=== PATIENT | male | born 1960 | race Caucasian/White ===

== ENCOUNTER 2019-06-28 11:08 | Inpatient (IN) ==
--- NOTE | 2019-06-01 14:33 | Anesthesiology Consultation ---
Date of Service June 01, 2019 Assessment & Plan (1) Encounter for pre-operative examination: Chart Review Chart Review: Acceptable Risk for Surgery and Patient seen in Pre Admission Testing PCP Clearance 06/01/19 note= "Yes" patient medically cleared for surgery Left knee arthroscopy 05/15/18= GA with LM #5- no issues noted Teaching & Discussion Pre-Anesthesia Teaching/Discussion Notes: Instructed NPO after midnight before surgery,except medications with 15 cc of water. Medication instructions provided according to the PAT guidelines. History Surgery Operation Date: 06/28/19 13:05 Proposed Procedures p Left Total Knee Arthroplasty - Benjamin Kelsey MD Height/Weight Height: 6 ft 1 in Weight: 81.7 kg Allergies Allergy/AdvReac Type Severity Reaction Status Date / Time morphine AdvReac Mild Vomiting Verified 05/28/19 11:16 Medications Home Medications Medication Instructions Recorded Confirmed Last Taken acetaminophen [Tylenol Extra 500 mg PO QAM 05/05/18 05/28/19 05/15/18 Strength] allopurinol 300 mg PO QAM 05/05/18 05/28/19 05/14/18 09:00 biotin 1 mg PO BID 05/05/18 05/28/19 05/14/18 09:00 celecoxib [Celebrex] 200 mg PO QAM 05/05/18 05/28/19 05/12/18 omeprazole 40 mg PO QAM 05/05/18 05/28/19 05/14/18 09:00 Past Medical History Medical History (Updated 06/01/19 @ 14:50 by Kavya Chamberlain PA-C) Chronic back pain Degenerative disc disease DVT (deep venous thrombosis) DVT s/p back surgery and left knee scope- on AC x six months after each event- no recent AC- no issues. Surgeon is aware of history GERD (gastroesophageal reflux disease) Well controlled and stable Gout Well controlled with meds Spinal stenosis Exercise / Class Metabolic Activity II 4-5 Yardwork/Stairs/Walk up hill (one flight of stairs- no chest pain or SOB ) Past Surgical History Surgical History (Updated 05/28/19 @ 11:19 by Bess Huizar RN) History of arthroscopic knee surgery LEFT History of back surgery lumbar disc repair History of colonoscopy History of esophagogastroduodenoscopy (EGD) History of lumbar fusion x2--hardware in place History of wisdom tooth extraction Past Anesthesia History No Hx of Anesthesia Complications and No Family Hx of Anesthesia Complications History of PONV No Hx of PONV and No Hx of Motion Sickness Social History Smoking Status: Former smoker (Light smoker x 4-5 years ) Do You Dip or Chew Tobacco: No Smoking End Date: 30-40 YR AGO Hx Alcohol Use: Yes Alcohol type: beer alcohol intake frequency: a few times a month Hx Substance Use: No substance use type: does not use Review of Systems Reflux well controlled with meds Hx of blood clot s/p surgeries (back and knee surgery)- has blood thinners prescribed after surgery. DVT to left LE x 2. AC x six months then d/c'ed. Surgeon aware Patient denies chest pain, shortness of breath, dyspnea on exertion, cough, wheezing, palpitations. No hx of seizures, stroke, SD, apnea/snoring. No blood transfusions No recent steroid use Physical Exam Vital Signs VITALS BP 153/95 (usually well controlled at appts) P 88 TEMP 98.2 SP02 98% RESP 18 Constitutional no acute distress ENMT Mouth: no TMJ clicking, no chipped teeth and no loose teeth Thyromental Distance: > or= 3.5 Finger Breadths (3.5) Mallampati Class: II No missing teeth Crowns to molars Neck neck extension not limited Respiratory normal respiratory effort; no respiratory distress Auscultation: lungs clear to auscultation bilaterally and + diminished lung sounds (throughout); no wheezes Cardiovascular Rate/Rhythm: regular rate and regular rhythm Heart Sounds: no murmur Vessels: no carotid bruit Musculoskeletal Spine: normal cervical ROM and no pain with cervical ROM Neurologic moves all extremities No LE edema Psychiatric Orientation: alert Testing Laboratory Results 06/01/19 14:52 06/01/19 14:52 PT 10.7 Seconds (9.0-12.0) 06/01/19 14:52 INR 1.0 (0.9-1.1) 06/01/19 14:52 Hemoglobin A1c 5.2 % (4.5-5.6) 06/01/19 14:52 Urine Color Yellow 06/01/19 14:52 Urine Appearance Clear (Clear) 06/01/19 14:52 Urine pH 5.0 (4.5-7.5) 06/01/19 14:52 Ur Specific [place] 1.022 (1.000-1.030) 06/01/19 14:52 Urine Protein Negative (Negative) 06/01/19 14:52 Urine Glucose (UA) Negative (Negative) 06/01/19 14:52 Urine Ketones Negative (Negative) 06/01/19 14:52 Urine Nitrite Negative (Negative) 06/01/19 14:52 Ur Leukocyte Esterase Negative (Negative) 06/01/19 14:52 Blood Type B Positive 06/01/19 14:52 Antibody Screen NEGATIVE 06/01/19 14:52 06/01/19 14:52 Urine Culture - Final Urine,Clean Catch Three types of organisms present, all low counts probable skin michel. No further identifications or sensitivities to follow. Electrocardiogram Date: 06/01/19 Findings: + NSR @ (86)
--- NOTE | 2019-06-01 14:43 | PAT Medication Instructions ---
Medication Instructions Date of Service June 01, 2019 Home Medications Medications acetaminophen [Tylenol Extra Strength] 500 mg PO QAM allopurinol 300 mg PO QAM biotin 1 mg PO BID celecoxib [Celebrex] 200 mg PO QAM omeprazole 40 mg PO QAM ASK your surgeon for instructions celecoxib [Celebrex] 200 mg PO QAM (stop 7 days prior per surgeon) DO NOT take the morning of surgery biotin 1 mg PO BID Take morning of surgery With a small sip of water, OTHERWISE NOTHING TO EAT OR DRINK AFTER MIDNIGHT: omeprazole 40 mg PO QAM acetaminophen [Tylenol Extra Strength] 500 mg PO QAM (okay to take up to 4 hours prior to surgery if needed) allopurinol 300 mg PO QAM Take evening before surgery biotin 1 mg PO BID Other Notes If you have any questions please call us at [phone] or [phone] or [phone] or [phone]
[2019-06-01 15:31] LABS: Basophils # (auto) 0.02 K/uL (0-0.2); Basophils % (auto) 0.3 %; Eosinophils % (auto) 1.7 %; Hematocrit (blood only) 44.4 % (42-52); Immature Granulocytes # (auto) 0.02 K/uL (0.00-0.02); Immature Granulocytes % (auto) 0.3 %; Lymphocytes # (auto) 1.59 K/uL (1.2-3.4); Lymphocytes % (auto) 27.6 %; Mean Corpuscular Hemoglobin 31.1 pg (25-34); Mean Corpuscular Hgb Conc 33.8 g/dL (32-36); Mean Corpuscular Volume 92.1 fL (80-100); Mean Platelet Volume 10.8 fL (7.4-10.4); Monocytes # (auto) 0.75 K/uL (0.11-0.59); Neutrophils # (auto) 3.29 K/uL (1.4-6.5); Neutrophils % (auto) 57.1 %; Platelet Count 187 K/uL (130-400); RDW Coefficient of Variation 13.8 % (11.5-14.5); RDW Standard Deviation 46.6 fL (36.4-46.3); Red Blood Count 4.82 M/uL (4.7-6.1); White Blood Count 5.77 K/uL (4.8-10.8)
[2019-06-01 15:32] LABS: Appearance Urine Clear (Clear); Bilirubin Urine Negative (Negative); Blood Urine Negative (Negative); Color Urine Yellow; Glucose Urine UA Negative (Negative); Ketones Urine Negative (Negative); Leukocyte Esterase Urine Negative (Negative); Nitrite Urine Negative (Negative); Protein Urine Negative (Negative); Specific Gravity Urine 1.022 (1.000-1.030); Urobilinogen Urine Negative (Negative)
[2019-06-01 15:42] LABS: Albumin Level 3.8 gm/dl (3.4-5.0); BUN Creatinine Ratio 12.2 (10-20); Calcium 9.4 mg/dl (8.5-10.1); Creatinine Clr Calc Pharmacy 85.1 ml/min; Est GFR (African American) 90.4; Potassium 4.4 mmol/L (3.5-5.1)
[2019-06-01 15:45] LABS: Albumin Globulin Ratio 1.2 (0.9-2); Bilirubin,Total 0.7 mg/dl (0.2-1); Globulin 3.2 gm/dl (2.5-4.0)
[2019-06-01 15:46] LABS: Prothrombin Time 10.7 Seconds (9.0-12.0)
--- NOTE | 2019-06-01 16:52 | Electrocardiogram Report ---
Test Reason : Blood Pressure : / mmHG Vent. Rate : 075 BPM Atrial Rate : 075 BPM P-R Int : 140 ms QRS Dur : 104 ms QT Int : 388 ms P-R-T Axes : 077 067 053 degrees QTc Int : 433 ms Normal sinus rhythm Normal ECG When compared with ECG of 09-MAY-2018 12:19, Sinus rhythm has replaced Electronic atrial pacemaker Confirmed by Gunnar Baires ([id number]) on 06/01/2019 4:52:31 PM Referred By: Benjamin Kelsey Confirmed By:Gunnar aBires
[2019-06-02 06:56] LABS: Estimated Average Glucose 103 mg/dl; Hemoglobin A1C 5.2 % (4.5-5.6)
--- NOTE | 2019-06-04 13:29 | History & Physical Report ---
Date of Service June 04, 2019 Assessment & Plan (1) Osteoarthritis of left knee: DIAGNOSES: Left knee osteoarthritis. PROCEDURE: Left total knee arthroplasty. PLAN: The patient is scheduled to undergo this procedure as an inpatient at [facility] on 06/28/2019. Risks and complications of the procedure such as infection, bleeding, pain, scarring, nerve and blood vessel damage, weakness, wound problems, stiffness, incomplete relief of symptoms, hardware failure, hardware loosening, wear, fracture, tendon or ligament injury, blood clots, embolism, heart attack, stroke and were explained to patient by Dr. Kelsey. Informed consent to perform the procedure was obtained. We have also received preoperative medical clearance from the patient's primary care provider, Dr. Ramirez. We will need to obtain preoperative CBC with differential, complete metabolic panel, PT, INR, blood type and screen, urinalysis, urine culture, hemoglobin A1c, EKG and nasal culture for MRSA. The patient states he will obtain this testing before his preanesthesia testing ex amination at the hospital this afternoon. The patient was given an order to obtain a walker to bring with him on the day of surgery. I also sent a prescription for Xarelto to his pharmacy because he had difficulty obtaining it prior to his last surgery. I advised him that I will provide him with prescriptions for postoperative pain control upon discharge from the hospital. We discussed discharge planning and he states he will most likely go home with in-home therapy. I advised him that [facility] offers lectures in regards to joint replacement surgery. He states that he would prefer just to review the booklet that was provided during today's visit. I talked about the recovery phase after surgery. I advised him that he will be in a knee immobilizer for 24 to 36 hours after the procedure. I provided him with paperwork to obtain a handicap placard to use for 6 months postoperatively. He is scheduled for his 2-week postoperative followup with myself on July 09. At that visit, we will reevaluate and provide him with an order for outpatient physical therapy and rehab protocol. The patient verbalized understanding of all information provided during today's visit, thanked us for the care he has received and states if he has questions or concerns that should arise prior to the procedure date, he will contact the clinic. History of Present Illness Chief Complaint: CHIEF COMPLAINT: Left knee pain. Primary Care Provider: Misael Ramirez MD HISTORY OF PRESENT ILLNESS: This 59-year-old male presents to clinic today for his preoperative history and physical. The patient has had ongoing left knee pain and arthritis for the past year or so. He underwent Euflexxa series a few months ago but did not experience any pain relief. He has visible varus malalignment of the knee joint and has an antalgic gait due to this malalignment. He states that his pain is considerable and prevents him from doing things that he likes to do. He states that he used to be a regular runner but now has difficulty ambulating and uses a cane as an ambulatory aid. The patient was seen by Dr. Kelsey in the past and underwent a left knee arthroscopy with medial meniscus debridement, chondroplasty and microfracture back on 05/15/2018. He states he has continued to have pain since that surgery and has had increased varus malalignment. PAST MEDICAL HISTORY: Venous insufficiency and history of deep vein thrombosis, history of gout and gastroesophageal reflux. PAST SURGICAL HISTORY: Lumbar fusion x3, diskectomy, tonsillectomy/adenoidectomy and left knee arthroscopy. FAMILY HISTORY: Positive for heart disease. ALLERGIES: PATIENT HAS MEDICATION ALLERGY TO MORPHINE. CURRENT MEDICATIONS: Allopurinol 300 mg tablet daily, Celebrex 200 mg tablet daily, omeprazole 20 mg tablet twice daily, [id number] Extra Strength Tylenol 2 tabs every 6 to 8 hours as needed. SOCIAL HISTORY: The patient states that he consumes 2 to 3 alcoholic beverages per week but denies tobacco or illicit drug use. Allergies Allergy/AdvReac Type Severity Reaction Status Date / Time morphine AdvReac Mild Vomiting Verified 05/28/19 11:16 Home Medications Home Medications Medication Instructions Recorded Confirmed Type acetaminophen [Tylenol Extra 500 mg PO QAM 05/05/18 05/28/19 History Strength] allopurinol 300 mg PO QAM 05/05/18 05/28/19 History biotin 1 mg PO BID 05/05/18 05/28/19 History celecoxib [Celebrex] 200 mg PO QAM 05/05/18 05/28/19 History omeprazole 40 mg PO QAM 05/05/18 05/28/19 History Past Med/Surg History Medical History Chronic back pain Degenerative disc disease DVT (deep venous thrombosis) DVT s/p back surgery and left knee scope- on AC x six months after each event- no recent AC- no issues. Surgeon is aware of history GERD (gastroesophageal reflux disease) Well controlled and stable Gout Well controlled with meds Spinal stenosis Surgical History History of arthroscopic knee surgery LEFT History of back surgery lumbar disc repair History of colonoscopy History of esophagogastroduodenoscopy (EGD) History of lumbar fusion x2--hardware in place History of wisdom tooth extraction Family History Other No family history of adverse response to anesthesia Social History Preferred Language: Iranian Communication Ability: Effective Visual Impairment: No Limitations Hearing Ability: Normal [employer] Designer Required: No Beliefs That Will Affect Care: None Current Living Situation: Spouse Current Living Situation Comment: lives with and son Feels Safe at Home: Yes Safety Concerns: Feels Safe At This Time Smoking Status: Former smoker (Light smoker x 4-5 years ) Do You Dip or Chew Tobacco: No ; Smoking End Date: 30-40 YR AGO ; Second Hand Exposure: No ; Hx Alcohol Use: Yes Alcohol type: beer Hx Substance Use: No Review of Systems All systems reviewed & are unremarkable except as noted in HPI & below Physical Exam Physical Exam: PHYSICAL EXAMINATION: Skin: Patient's skin is normal in appearance. No open skin lesions or discharge. Eyes: Pupils are equal and reactive to light and accommodating. Extraocular movements are intact. Throat: Posterior oropharynx is clear with absence of edema, erythema or exudate. Cardiovascular exam: The patient has a regular rate and rhythm, no murmurs or gallops appreciated. Lungs: Auscultation of lung wood reveals clear breath sounds throughout with no wheezing, rales or rhonchi. Abdomen is nonobese, nondistended, nontender with normoactive bowel sounds. Extremities: Left knee: Patient has visible varus malalignment with range of motion limited to 0 degrees of extension and 115 degrees of flexion. Patient experiences significant medial joint line tenderness while knee is palpated in flexed position. There is audible crepitation with range of motion. He has no varus or valgus laxity, negative AP drawer sign, negative Jaz test. Calf soft and supple, nontender to palpation. He is neurovascularly intact in the left lower extremity. Neurological exam: Cranial nerves 2 through 12 are intact with no motor or sensory deficit. Psychological/general exam: The patient is alert and oriented x3 with appropriate grooming and hygiene. Results & Data Laboratory Results Lab Results 06/01/19 06/01/19 06/01/19 Range/Units 14:52 14:52 14:52 WBC 5.77 (4.8-10.8) K/uL RBC 4.82 (4.7-6.1) M/uL Hgb 15.0 (14.0-18.0) g/dL Hct 44.4 (42-52) % MCV 92.1 (80-100) fL MCH 31.1 (25-34) pg MCHC 33.8 (32-36) g/dL RDW Std Deviation 46.6 H (36.4-46.3) fL RDW Coeff of Joshua 13.8 (11.5-14.5) % Plt Count 187 (130-400) K/uL MPV 10.8 H (7.4-10.4) fL Immature Gran % (Auto) 0.3 % Neut % (Auto) 57.1 % Lymph % (Auto) 27.6 % Pope % (Auto) 13.0 % Eos % (Auto) 1.7 % Baso % (Auto) 0.3 % Immature Gran # (Auto) 0.02 (0.00-0.02) K/uL Neut # (Auto) 3.29 (1.4-6.5) K/uL Lymph # (Auto) 1.59 (1.2-3.4) K/uL Pope # (Auto) 0.75 H (0.11-0.59) K/uL Eos # (Auto) 0.10 (0-0.5) K/uL Baso # (Auto) 0.02 (0-0.2) K/uL PT 10.7 (9.0-12.0) Seconds INR 1.0 (0.9-1.1) Sodium 139 (136-145) mmol/L Potassium 4.4 (3.5-5.1) mmol/L Chloride 106 (98-107) mmol/L Carbon Dioxide 30 (21-32) mmol/L Anion Gap 3.0 (3-11) BUN 13 (7-18) mg/dl Creatinine 1.03 (0.6-1.4) mg/dl Est Cr Clr Drug Dosing 85.1 ml/min Est GFR ( Amer) 90.4 Est GFR (Non-Af Amer) 78.0 BUN/Creatinine Ratio 12.2 (10-20) Glucose 112 H (70-99) mg/dl Estimat Average Glucose mg/dl Hemoglobin A1c (4.5-5.6) % Calcium 9.4 (8.5-10.1) mg/dl Total Bilirubin 0.7 (0.2-1) mg/dl AST 15 (15-37) U/L ALT 23 (12-78) U/L Alkaline Phosphatase 98 (45-117) U/L Total Protein 7.0 (6.4-8.2) gm/dl Albumin 3.8 (3.4-5.0) gm/dl Globulin 3.2 (2.5-4.0) gm/dl Albumin/Globulin Ratio 1.2 (0.9-2) Urine Color Urine Appearance (Clear) Urine pH (4.5-7.5) Ur Specific [place] (1.000-1.030) Urine Protein (Negative) Urine Glucose (UA) (Negative) Urine Ketones (Negative) Urine Blood (Negative) Urine Nitrite (Negative) Urine Bilirubin (Negative) Urine Urobilinogen (Negative) Ur Leukocyte Esterase (Negative) Nasal Screen MRSA (PCR) (Negative) Blood Type Antibody Screen 06/01/19 06/01/19 06/01/19 Range/Units 14:52 14:52 14:52 WBC (4.8-10.8) K/uL RBC (4.7-6.1) M/uL Hgb (14.0-18.0) g/dL Hct (42-52) % MCV (80-100) fL MCH (25-34) pg MCHC (32-36) g/dL RDW Std Deviation (36.4-46.3) fL RDW Coeff of Joshua (11.5-14.5) % Plt Count (130-400) K/uL MPV (7.4-10.4) fL Immature Gran % (Auto) % Neut % (Auto) % Lymph % (Auto) % Pope % (Auto) % Eos % (Auto) % Baso % (Auto) % Immature Gran # (Auto) (0.00-0.02) K/uL Neut # (Auto) (1.4-6.5) K/uL Lymph # (Auto) (1.2-3.4) K/uL Pope # (Auto) (0.11-0.59) K/uL Eos # (Auto) (0-0.5) K/uL Baso # (Auto) (0-0.2) K/uL PT (9.0-12.0) Seconds INR (0.9-1.1) Sodium (136-145) mmol/L Potassium (3.5-5.1) mmol/L Chloride (98-107) mmol/L Carbon Dioxide (21-32) mmol/L Anion Gap (3-11) BUN (7-18) mg/dl Creatinine (0.6-1.4) mg/dl Est Cr Clr Drug Dosing ml/min Est GFR ( Amer) Est GFR (Non-Af Amer) BUN/Creatinine Ratio (10-20) Glucose (70-99) mg/dl Estimat Average Glucose mg/dl Hemoglobin A1c (4.5-5.6) % Calcium (8.5-10.1) mg/dl Total Bilirubin (0.2-1) mg/dl AST (15-37) U/L ALT (12-78) U/L Alkaline Phosphatase (45-117) U/L Total Protein (6.4-8.2) gm/dl Albumin (3.4-5.0) gm/dl Globulin (2.5-4.0) gm/dl Albumin/Globulin Ratio (0.9-2) Urine Color Yellow Urine Appearance Clear (Clear) Urine pH 5.0 (4.5-7.5) Ur Specific [place] 1.022 (1.000-1.030) Urine Protein Negative (Negative) Urine Glucose (UA) Negative (Negative) Urine Ketones Negative (Negative) Urine Blood Negative (Negative) Urine Nitrite Negative (Negative) Urine Bilirubin Negative (Negative) Urine Urobilinogen Negative (Negative) Ur Leukocyte Esterase Negative (Negative) Nasal Screen MRSA (PCR) Negative (Negative) Blood Type B Positive Antibody Screen NEGATIVE 02/07/20 Range/Units 14:52 WBC (4.8-10.8) K/uL RBC (4.7-6.1) M/uL Hgb (14.0-18.0) g/dL Hct (42-52) % MCV (80-100) fL MCH (25-34) pg MCHC (32-36) g/dL RDW Std Deviation (36.4-46.3) fL RDW Coeff of Joshua (11.5-14.5) % Plt Count (130-400) K/uL MPV (7.4-10.4) fL Immature Gran % (Auto) % Neut % (Auto) % Lymph % (Auto) % Pope % (Auto) % Eos % (Auto) % Baso % (Auto) % Immature Gran # (Auto) (0.00-0.02) K/uL Neut # (Auto) (1.4-6.5) K/uL Lymph # (Auto) (1.2-3.4) K/uL Pope # (Auto) (0.11-0.59) K/uL Eos # (Auto) (0-0.5) K/uL Baso # (Auto) (0-0.2) K/uL PT (9.0-12.0) Seconds INR (0.9-1.1) Sodium (136-145) mmol/L Potassium (3.5-5.1) mmol/L Chloride (98-107) mmol/L Carbon Dioxide (21-32) mmol/L Anion Gap (3-11) BUN (7-18) mg/dl Creatinine (0.6-1.4) mg/dl Est Cr Clr Drug Dosing ml/min Est GFR ( Amer) Est GFR (Non-Af Amer) BUN/Creatinine Ratio (10-20) Glucose (70-99) mg/dl Estimat Average Glucose 103 mg/dl Hemoglobin A1c 5.2 (4.5-5.6) % Calcium (8.5-10.1) mg/dl Total Bilirubin (0.2-1) mg/dl AST (15-37) U/L ALT (12-78) U/L Alkaline Phosphatase (45-117) U/L Total Protein (6.4-8.2) gm/dl Albumin (3.4-5.0) gm/dl Globulin (2.5-4.0) gm/dl Albumin/Globulin Ratio (0.9-2) Urine Color Urine Appearance (Clear) Urine pH (4.5-7.5) Ur Specific [place] (1.000-1.030) Urine Protein (Negative) Urine Glucose (UA) (Negative) Urine Ketones (Negative) Urine Blood (Negative) Urine Nitrite (Negative) Urine Bilirubin (Negative) Urine Urobilinogen (Negative) Ur Leukocyte Esterase (Negative) Nasal Screen MRSA (PCR) (Negative) Blood Type Antibody Screen
[~2019-06-28 11:08] MED LIST: ACETAMINOPHEN 500 MG TAB PO SCH; BUPIVACAINE 0.5 % 5 MG/1 ML PF 10ML VIAL ONE; BUPIVACAINE/EPINEPHRINE 0.25% 1:200,000 30 ML VIAL ONE; CEFAZOLIN 2000MG 2,000 MG/15 ML SYR IV SCH; CeleBREX 200 MG CAP PO SCH; DEXAMETHASONE SOD INJ 4 MG/ML VIAL ONE; FAMOTIDINE 20 MG TAB PO SCH; GENERAL ORDER PROBLEM SCH; LR 500ML BOLUS, THEN 15ML/HR IV SCH; LR 60ML/HR IV SCH; METOCLOPRAMIDE HCL 10 MG TABLET PO SCH; ROPIVACAINE 0.5% HCL/PF 150 MG, BUPIVACAINE 0.5% MPF 30 ML, EPINEPHrine 0.15 MG, Ketoro... INFIL SCH; SCOPOLAMINE 1.5 MG TDSY TD SCH; TRAMADOL HCL 50 MG TABLET PO SCH; TRANEXAMIC ACID 1,000 MG **IV Intra-op IV SCH; TRANEXAMIC ACID 1,000 MG **IV Pre-op IV SCH; dexAMETHasone 4 MG TAB PO SCH
--- NOTE | 2019-06-28 11:46 | History & Physical Bridge Note ---
Date of Service June 28, 2019 History & Physical Bridge Note I have examined the patient, reviewed the History & Physical and in the interval since the performance of the History & Physical I have noted the following changes of clinical significance: no changes noted
[2019-06-28] MEDS ORDERED: PROPOFOL IV EMULSION 10 MG/ML 20 ML VIAL IV ONE ×3 (12:56→16:33)
[2019-06-28] MEDS ORDERED: ONDANSETRON INJ 2 MG/ML 2 ML VIAL ONE (12:56)
[2019-06-28] MEDS ORDERED: LIDOCAINE HCL 2% 2 ML VIAL/AMP(20MG/ML) INFIL ONE (12:56)
[2019-06-28] MEDS ORDERED: fentaNYL citrate 100 MCG/2 ML VIAL ONE (12:56)
[2019-06-28] MEDS ORDERED: MIDAZOLAM HCL 1 MG/ML 2ML VIAL ONE (12:56)
[2019-06-28] MEDS ORDERED: DEXAMETHASONE SOD INJ 4 MG/ML VIAL ONE (12:56)
[2019-06-28] MEDS ORDERED: ONDANSETRON INJ 2 MG/ML 2 ML VIAL IV PRN ×2 (14:42→17:51)
[2019-06-28] MEDS ORDERED: fentaNYL citrate 100 MCG/2 ML VIAL IV PRN (14:42)
[2019-06-28] MEDS ORDERED: ATROPINE SULFATE 0.1 MG/ML 10ML SYR IV PRN (14:42)
[2019-06-28] MEDS ORDERED: ePHEDrine sulfate 50 MG/ML AMP IV PRN (14:42)
[2019-06-28] MEDS ORDERED: BUPIVACAINE 0.5 % 5 MG/1 ML PF 10ML VIAL ONE (15:04)
[2019-06-28] MEDS ORDERED: ORTHO JOINT ANESTHETIC ONE (15:11)
--- NOTE | 2019-06-28 17:37 | Post Operative Brief Note ---
Immediate Post Op Note v1 Date of Surgery June 28, 2019 Pre & Post Diagnosis Operation Date: 06/28/19 13:05 Pre-Op Diagnosis: Left Knee Osteoarthritis Post-Op Diagnosis: Left Knee Osteoarthritis I identified the patient and participated in the time-out.: Yes Procedure Operation Date: 06/28/19 13:05 Actual Procedures p Left Total Knee Arthroplasty(Left) - Benjamin Kelsey MD Surgeon Benjamin Kelsey MD [employer] EVONNE Lazaro PA-C Estimated Blood Loss 100 Findings Consistent with Post-Op Diagnosis Fluids 1600 cc Anesthesia Type Spinal MAC Complications none Disposition Accompanied Patient To Recovery: No Disposition: Recovery Room
--- NOTE | 2019-06-28 17:50 | Operative Report ---
Post Operative Report Pre & Post Diagnosis Operation Date: 06/28/19 13:05 Pre-Op Diagnosis: Left Knee Osteoarthritis Post-Op Diagnosis: Left Knee Osteoarthritis I identified the patient and participated in the time-out.: Yes Procedure Operation Date: 06/28/19 13:05 Actual Procedures p Left Total Knee Arthroplasty(Left) - Benjamin Kelsey MD Surgeon Benjamin Kelsey MD [employer] EVONNE Lazaro PA-C Estimated Blood Loss 100 Findings Consistent with Post-Op Diagnosis Specimens none Complications none Disposition Accompanied Patient To Recovery: Yes Disposition: Recovery Room Description of Procedure I was present during the entire procedure assisting with retraction, wound closure, dressing and immobilizer application. Please see Dr. Kelsey procedure note for specifics of the case. I attest to the content of the Intraoperative Record and any orders documented therein. Any exceptions are noted below.
[2019-06-28] MEDS ORDERED: NALOXONE HCL 0.4 MG/1 ML VIAL/CARP IV PRN (17:51)
[2019-06-28] MEDS ORDERED: MAGNESIUM HYDROXIDE SUSP 30 ML UDC PO PRN (17:51)
[2019-06-28] MEDS ORDERED: DiphenhydrAMINE HCL 50 MG/ML VIAL IV PRN (17:51)
[2019-06-28] MEDS ORDERED: OXYCODONE HCL IR 5 MG TAB (IMMEDIATE RELEASE) PO PRN (17:51)
[2019-06-28] MEDS ORDERED: bisacodyL 10 MG SUPP PR PRN (17:51)
[2019-06-28] MEDS ORDERED: METOCLOPRAMIDE HCL INJ 5 MG/ML 2 ML VIAL IV PRN (17:51)
[2019-06-28] MEDS ORDERED: TAMSULOSIN HCL 0.4 MG CAP PO PRN (17:51)
[2019-06-28] MEDS ORDERED: HYDROmorphone INJ 0.5 MG/0.5 ML SYR IV PRN (17:51)
[2019-06-28] MEDS ORDERED: ALUMINUM/MAGNESIUM SUSP 30 ML UDC PO PRN (17:51)
--- NOTE | 2019-06-28 18:31 | XRay Report ---
XR knee LT 1 or 2V routine HISTORY: 59 years-old Male Surgical Post Op [total joint arthroplasty COMPARISON: Knee radiographs 06/01/2019 TECHNIQUE: 2 views of the left knee FINDINGS: Left knee total joint arthroplasty and patella resurfacing. Anterior midline skin jessi are noted a long with expected postsurgical soft tissue swelling and deep tissue air. No acute fracture or retain ed foreign body. IMPRESSION: Left knee total joint arthroplasty with expected postoperative findings. ACT 112: Negative or not required by law. The above report was generated using voice recognition software. It may contain grammatical, syntax o r spelling errors. Results electronically sent 06/28/2019 6:29 PM to: Bossman Lazaro PA-C Electronically signed by: Vladislav Saenz M.D. 06/28/2019 6:29 PM
--- NOTE | 2019-06-28 19:25 | Anesthesiology Progress Note ---
Date of Service June 28, 2019 Anesthesia Post Procedure Vital Signs Vital Signs: Temp Pulse Pulse Resp BP Pulse Ox 06/28/19 19:19 36.5 C 58 L 18 121/77 99 06/28/19 18:50 37.2 C 60 18 113/71 97 06/28/19 18:45 37.1 C 59 L 20 101/68 96 06/28/19 18:35 37.1 C 59 L 16 106/67 96 06/28/19 18:25 37.1 C 60 16 111/65 95 06/28/19 18:15 37.1 C 59 L 16 113/58 L 96 06/28/19 18:05 59 L 16 105/71 97 06/28/19 17:55 64 16 104/69 97 06/28/19 17:48 37.2 C 68 16 112/65 97 06/28/19 11:59 36.5 C 71 18 145/98 H 100 Pain Intensity Left Knee: Pain Intensity: 7 Transfer of Care Handoff Completed per policy Notes Mental Status: alert / awake / arousable Patient Amnestic to Procedure: Yes Nausea / Vomiting: adequately controlled Pain: adequately controlled Airway Patency, RR, SpO2: stable & adequate BP & HR: stable & adequate Hydration State: stable & adequate Neuraxial Anesthesia: was administered and sensory block is resolving Anesthetic Complications: no major complications apparent and Pt Satisfied with anesthetic care
[2019-06-28] MEDS: KETOROLAC TROMETHAMINE 15 MG/ML VIAL IV SCH (20:13)
[2019-06-28] MEDS: SODIUM CHLORIDE 0.9% 1000ML 1,000 ML IV SCH (20:13)
[2019-06-28] MEDS: CHECK SCOPOLAMINE PATCH PLACEMENT SCH (20:13)
[2019-06-28] MEDS: DOCUSATE SODIUM 100 MG CAP PO SCH (20:23)
[2019-06-28] MEDS: ASPIRIN 81 MG ECTAB PO SCH (20:23)
[2019-06-28] MEDS ORDERED: NON-FORMULARY MEDICATION (Biotin 1 MG) PO SCH (21:00)
[2019-06-28] MEDS ORDERED: SENNA 8.6 MG TAB PO SCH (21:00)
--- NOTE | 2019-06-28 21:22 | Operative Report ---
DATE OF OPERATION: 06/28/2019 PREOPERATIVE DIAGNOSIS: Left knee osteoarthritis. POSTOPERATIVE DIAGNOSIS: Left knee osteoarthritis. OPERATIONS PERFORMED: Left total knee arthroplasty. SURGEON: Benjamin Kelsey MD TIME CLOCK INSPECTOR: Chanda Lazaro. ESTIMATED BLOOD LOSS: 100 mL. INTRAVENOUS FLUIDS: 1600 mL crystalloid. SPECIMENS: Bone and soft tissue contents from the knee. COMPLICATIONS: None. IMPLANTS: 1. DePuy Sigma size 5 posterior stabilized cemented femur. 2. DePuy MBT keel size 4 cemented tibial tray rotating platform. 3. Size 5 x 10 mm thickness tibial rotating platform insert. 4. Size 41 mm patella. INDICATIONS: Mr. Nguyen is a 59-year-old male who underwent a previous knee arthroscopy and medial meniscus root repair. At that time, he was noted to have chondral damage to the medial compartment of the knee. Unfortunately, he has progressed the arthritis over the last year and half. His arthritis is affecting his activities of daily living. I had a long discussion with him about the risks and benefits of surgery, alternatives to surgery and expected outcomes. After reviewing all these, he elected to proceed with surgery. All questions were answered. Informed consent was signed. OPERATIVE FINDINGS: The patient had primarily medial compartment osteoarthritis which was bone on bone. A rotating platform total knee arthroplasty was performed. DESCRIPTION THE OPERATION: The patient was identified in the preoperative holding area where surgical site was marked. He was given a spinal anesthetic and brought back to main operating room, where he was placed on the operating room table and IV sedation was administered. A bump was placed underneath the ipsilateral hip. All bony prominences were padded. Perioperative antibiotics were administered. A single dose of tranexamic acid was given. He was prepped and draped in normal sterile fashion. Prior to incision, a multidisciplinary timeout was called. All in the room were in agreement. We began by exsanguinating the limb with an Esmarch bandage. Tourniquet was inflated to 250 mmHg. A 16 cm incision was made along the medial aspect of the tibial tubercle extending up over the patella under the quadriceps tendon. Full thickness flaps were raised above the fascia. Arthrotomy was made curving along the medial border of the patella. Half the fat pad was excised. The suprapatellar synovitis was removed. The patella was everted and stabilized with 2 towel clips. The patellar thickness was measured at 26 mm. I then resected approximately 11 mm. We then placed the size 41 mm trial. Three drill holes were placed. The size 41 button trial was placed and came back at 26 mm thickness which I was very happy with. Next, the knee was flexed up. The notch osteophytes were removed. The cruciates were excised. Our intramedullary drill was used followed by the cutting jig, which was set at 5 degree valgus cut. This was to resect 11 mm off the less involved condyle. The cut was then made without difficulty. Osteophytes were removed. We then exposed the proximal tibia. The lateral meniscus was excised. The tibial cutting jig was set to resect 10 mm off the less involved lateral tibial plateau for a perpendicular cut. This was pinned into position. Proximal tibial cut was then made. We then brought the knee out into full extension. The medial meniscus was excised. The extension block was then placed. He was a little bit tight medially. Therefore, I elected to recut his proximal tibia as there was some sclerotic bone along the medial tibial plateau. The cutting guide was repositioned to take more off the medial side approximately 2 mm. This was done without difficulty. I then could get the extension block in place with a minimal medial tightness. He had full extension. Next, the knee was flexed up and a sizing guide was placed on the cut distal femoral surface. He sized to a size 5. A 3-degree external rotation jig was pinned into position. We then checked our external rotation and it was parallel with the epicondylar axis and perpendicular to Sonoma's line. We then pinned the 4-in-1 cutting block into position and made our 4 cuts. The flexion block was placed. Again was just a little bit tight medially. Therefore, we removed some more osteophytes off the medial tibial plateau. This improved the stability. I also performed a posterior capsular release medially using Young elevator. Next, the box cutting guide was placed and pinned into position. The box cut was made. The femoral trial was implanted into position. The tibia was subluxated forward. It sized to a size 4. The guide was then pinned into position. The intramedullary drill was used followed by the keel punch. We then trialled with a 10 mm thickness polyethylene. He had excellent stability through a full range of motion. Therefore, the trial components were removed. The periarticular injection was placed through the posterior capsule as well as medially and laterally. I then irrigated out the cut bony surfaces while the cement was mixed on the backtable. The components were then impacted into position and excess cement was removed. The 10 mm polyethylene trial was placed and knee was held in full extension while cement cured. The knee was then irrigated out with sterile Betadine solution. The tourniquet was let down. Meticulous hemostasis was ensured. The knee was irrigated out and once the cement was dry, it was flexed back up. He was brought through a full range of motion. I was very happy with the stability. There was good patellar tracking. Therefore, the real 10 mm thickness polyethylene was placed. We then began to close. The arthrotomy was closed with 0 Vicryl sutures around the medial patellar retinaculum. A #1 Ethibond was used to run the patellar tendon and quadriceps tendon. A 2-0 Vicryl was used for the deep dermis. Stapler was used for the skin. Sterile dressing was applied. The patient was transferred to recovery room in stable condition. POSTOPERATIVE COURSE: The patient will be admitted overnight for pain control and monitoring. He is weightbearing as tolerated. X-rays are pending in the recovery room. He does have a history of a DVT in the past and therefore we will use Xarelto for DVT prophylaxis for 3 weeks. I attest to the content of the Intraoperative Record and any orders documented therein. Any exception s are noted below.
[2019-06-28] MEDS: ACETAMINOPHEN 500 MG TAB PO SCH (21:40)
[2019-06-28] MEDS ORDERED: TRANEXAMIC ACID / 0.7% NACL 1,000 MG/100 ML BAG IV SCH (23:53)
[2019-06-29] MEDS: CEFAZOLIN 2000MG 2,000 MG/15 ML SYR IV SCH ×2 (00:34→08:09)
[2019-06-29] MEDS: CHECK SCOPOLAMINE PATCH PLACEMENT SCH ×2 (00:37→08:08)
[2019-06-29] MEDS: KETOROLAC TROMETHAMINE 15 MG/ML VIAL IV SCH ×3 (00:50→13:26)
[2019-06-29] MEDS: SODIUM CHLORIDE 0.9% 1000ML 1,000 ML IV SCH (04:37)
[2019-06-29] MEDS: ACETAMINOPHEN 500 MG TAB PO SCH ×2 (05:50→13:25)
[2019-06-29 06:23] LABS: Hematocrit (blood only) 37.4 % (42-52); Hemoglobin 12.5 g/dL (14.0-18.0); Mean Corpuscular Hemoglobin 30.9 pg (25-34); Mean Corpuscular Hgb Conc 33.4 g/dL (32-36); Mean Corpuscular Volume 92.3 fL (80-100); Mean Platelet Volume 10.5 fL (7.4-10.4); Platelet Count 172 K/uL (130-400); RDW Coefficient of Variation 13.2 % (11.5-14.5); RDW Standard Deviation 44.5 fL (36.4-46.3); Red Blood Count 4.05 M/uL (4.7-6.1); White Blood Count 13.64 K/uL (4.8-10.8)
[2019-06-29 06:51] LABS: BUN Creatinine Ratio 17.3 (10-20); Calcium 8.6 mg/dl (8.5-10.1); Creatinine Clr Calc Pharmacy 97.4 ml/min; Est GFR (African American) 106.5; Est GFR (Non-African American) 91.9; Potassium 4.1 mmol/L (3.5-5.1)
[2019-06-29] MEDS ORDERED: dexAMETHasone 4 MG TAB PO SCH (08:00)
[2019-06-29] MEDS: DOCUSATE SODIUM 100 MG CAP PO SCH (08:08)
[2019-06-29] MEDS: ASPIRIN 81 MG ECTAB PO SCH (08:13)
--- NOTE | 2019-06-29 08:14 | Anesthesiology Progress Note ---
Date of Service June 29, 2019 Anesthesia Post Procedure Vital Signs Vital Signs: Temp Pulse Pulse Resp BP Pulse Ox 06/29/19 07:12 36.7 C 55 L 16 120/74 99 06/29/19 03:25 36.7 C 58 L 16 126/80 97 06/28/19 23:40 36.4 C L 52 L 16 104/66 97 06/28/19 21:57 36.4 C L 56 L 16 114/69 94 06/28/19 20:21 36.5 C 59 L 18 124/80 99 06/28/19 19:49 36.1 C L 60 18 125/76 98 06/28/19 19:19 36.5 C 58 L 18 121/77 99 06/28/19 18:50 37.2 C 60 18 113/71 97 06/28/19 18:45 37.1 C 59 L 20 101/68 96 06/28/19 18:35 37.1 C 59 L 16 106/67 96 06/28/19 18:25 37.1 C 60 16 111/65 95 06/28/19 18:15 37.1 C 59 L 16 113/58 L 96 06/28/19 18:05 59 L 16 105/71 97 06/28/19 17:55 64 16 104/69 97 06/28/19 17:48 37.2 C 68 16 112/65 97 06/28/19 11:59 36.5 C 71 18 145/98 H 100 Pain Intensity Left Knee: Pain Intensity: 7 Notes Mental Status: alert / awake / arousable and participated in evaluation Patient Amnestic to Procedure: Yes Nausea / Vomiting: adequately controlled Pain: adequately controlled Airway Patency, RR, SpO2: stable & adequate BP & HR: stable & adequate Hydration State: stable & adequate Neuraxial Anesthesia: was administered and sensory block resolved Anesthetic Complications: no major complications apparent and Pt Satisfied with anesthetic care
[2019-06-29] MEDS ORDERED: MULTIVITAMIN TAB PO SCH (09:00)
[2019-06-29] MEDS ORDERED: ACETAMINOPHEN 500 MG TAB PO SCH (09:00)
[2019-06-29] MEDS ORDERED: CeleBREX 200 MG CAP PO SCH ×2 (09:00→21:00)
[2019-06-29] MEDS ORDERED: PANTOprazole 40 MG TAB PO SCH (09:00)
[2019-06-29] MEDS ORDERED: allopurinoL 300 MG TAB PO SCH (09:00)
--- NOTE | 2019-06-29 16:38 | Orthopedic Progress Note ---
Date of Service June 29, 2019 Assessment & Plan (1) Osteoarthritis of left knee: PT/OT WBAT with walker assistance and immobilizer for 1st 48 hours post op Ice with EZ wrap DVT Prophy with TEDs and Xarelto Pain control with PO meds Discharge today with home health services Keep Silverlon in place until follow up Follow up with [facility] as scheduled With questions call Admission and Anticipated Discharge Date Admission Date: June 28, 2019 Subjective This 59 yo M is day 1 s/p Left total knee arthroplasty. He is doing very well. State that his pain is well controlled with the PO pain meds. His plan is to be discharged home with home health services today. Pt states that he was able to ambulate with the walker and immobilizer without difficulty last night. He denies CP, SOB, fever, chills, sweats, nausea, vomiting, or lethargy. Review of Systems Review of Systems: All systems reviewed & are unremarkable except as noted in Subjective Physical Exam Physical Exam: Left Knee: dressing removed. Reilly intact with no drainage. Silverlon applies. ROM 0-90 degrees without difficulty. No clunking with varus/valgus stressing or with A/P drawer test. Patella freely movable. Mild edema. No ecchymosis. Calf soft and supple. NV intact. Periph pulses easily palpable. Cap refill < 2 seconds. Results & Data ([facility]) Vital Signs (Past 12 Hours) Vital Signs Temp Pulse Resp BP Pulse Ox 06/29/19 13:21 36.8 C 58 L 16 114/76 97 06/29/19 12:06 36.8 C 58 L 16 114/76 97 06/29/19 07:12 36.7 C 55 L 16 120/74 99 Laboratory Results 06/29/19 06/29/19 06/29/19 Range/Units 05:50 05:50 05:50 WBC 13.64 H (4.8-10.8) K/uL RBC 4.05 L (4.7-6.1) M/uL Hgb 12.5 L (14.0-18.0) g/dL Hct 37.4 L (42-52) % MCV 92.3 (80-100) fL MCH 30.9 (25-34) pg MCHC 33.4 (32-36) g/dL RDW Std Deviation 44.5 (36.4-46.3) fL RDW Coeff of Joshua 13.2 (11.5-14.5) % Plt Count 172 (130-400) K/uL MPV 10.5 H (7.4-10.4) fL Sodium 137 (136-145) mmol/L Potassium 4.1 (3.5-5.1) mmol/L Chloride 105 (98-107) mmol/L Carbon Dioxide 26 (21-32) mmol/L Anion Gap 6.0 (3-11) BUN 16 (7-18) mg/dl Creatinine 0.90 (0.6-1.4) mg/dl Est Cr Clr Drug Dosing 97.4 ml/min Est GFR ( Amer) 106.5 Est GFR (Non-Af Amer) 91.9 BUN/Creatinine Ratio 17.3 (10-20) Glucose 132 H (70-99) mg/dl Calcium 8.6 (8.5-10.1) mg/dl Hepatitis C Ab Screen Neg (Neg)
--- NOTE | 2019-07-02 08:49 | Discharge Summary ---
Date of Service July 02, 2019 Admission HPI Per Admitting Provider HISTORY OF PRESENT ILLNESS: This 59-year-old male presents to clinic today for his preoperative history and physical. The patient has had ongoing left knee pain and arthritis for the past year or so. He underwent Euflexxa series a few months ago but did not experience any pain relief. He has visible varus malalignment of the knee joint and has an antalgic gait due to this malalignment. He states that his pain is considerable and prevents him from doing things that he likes to do. He states that he used to be a regular runner but now has difficulty ambulating and uses a cane as an ambulatory aid. The patient was seen by Dr. Kelsey in the past and underwent a left knee arthroscopy with medial meniscus debridement, chondroplasty and microfracture back on 05/15/2018. He states he has continued to have pain since that surgery and has had increased varus malalignment. PAST MEDICAL HISTORY: Venous insufficiency and history of deep vein thrombosis, history of gout and gastroesophageal reflux. PAST SURGICAL HISTORY: Lumbar fusion x3, diskectomy, tonsillectomy/adenoidectomy and left knee arthroscopy. FAMILY HISTORY: Positive for heart disease. ALLERGIES: PATIENT HAS MEDICATION ALLERGY TO MORPHINE. CURRENT MEDICATIONS: Allopurinol 300 mg tablet daily, Celebrex 200 mg tablet daily, omeprazole 20 mg tablet twice daily, vado-dhi-shulnme Extra Strength Tylenol 2 tabs every 6 to 8 hours as needed. SOCIAL HISTORY: The patient states that he consumes 2 to 3 alcoholic beverages per week but denies tobacco or illicit drug use. Admission Exam Per Admitting Provider PHYSICAL EXAMINATION: Skin: Patient's skin is normal in appearance. No open skin lesions or discharge. Eyes: Pupils are equal and reactive to light and accommodating. Extraocular movements are intact. Throat: Posterior oropharynx is clear with absence of edema, erythema or exudate. Cardiovascular exam: The patient has a regular rate and rhythm, no murmurs or gallops appreciated. Lungs: Auscultation of lung wood reveals clear breath sounds throughout with no wheezing, rales or rhonchi. Abdomen is nonobese, nondistended, nontender with normoactive bowel sounds. Extremities: Left knee: Patient has visible varus malalignment with range of motion limited to 0 degrees of extension and 115 degrees of flexion. Patient experiences significant medial joint line tenderness while knee is palpated in flexed position. There is audible crepitation with range of motion. He has no varus or valgus laxity, negative AP drawer sign, negative Jaz test. Calf soft and supple, nontender to palpation. He is neurovascularly intact in the left lower extremity. Neurological exam: Cranial nerves 2 through 12 are intact with no motor or sensory deficit. Psychological/general exam: The patient is alert and oriented x3 with appropriate grooming and hygiene. Principal Diagnosis Left knee osteoarthritis Discharge Exam Left Knee: dressing removed. Wana intact with no drainage. Silverlon applies. ROM 0-90 degrees without difficulty. No clunking with varus/valgus stressing or with A/P drawer test. Patella freely movable. Mild edema. No ecchymosis. Calf soft and supple. NV intact. Periph pulses easily palpable. Cap refill < 2 seconds. Discharge Data Allergies Allergy/AdvReac Type Severity Reaction Status Date / Time morphine AdvReac Mild Vomiting Verified 06/28/19 11:47 Consultations 06/28/19 17:51 Consult Case Management - Discharge Planning Routine Procedures Performed Operation Date: 06/28/19 13:05 Actual Procedures p Left Total Knee Arthroplasty(Left) - Benjamin Kelsey MD Ordered Studies 06/28/19 05:00 US - OR guided needle placemen Routine Hospital Course (1) Osteoarthritis of left knee: Patient did very well overnight and was eager to go home when is saw him in the AM. He stated that he was up ambulating last night without pain or difficulty. He stated that he was given Oxycodone for pain control and that it was completely effective and would like an Rx for it, instead of Tramadol we discussed at his Pre-Op visit. He will be discharged before lunch and will go home with home health services. PT/OT WBAT with walker assistance and immobilizer for 1st 48 hours post op Ice with EZ wrap DVT Prophy with TEDs and Xarelto Pain control with PO meds Discharge today with home health services Keep Silverlon in place until follow up Follow up with [facility] as scheduled With questions call Total Time Total Time Spent Total Time Spent (In Minutes): 20 Total Time Includes: Examination of the Patient, Discharge Planning and Medication Reconciliation Discharge Plan Discharge Items Patient Disposition: Home - Home Health Services Reason For Visit: Left Knee Osteoarthritis Discharge Diagnosis: Left knee osteoarthritis Activity: As commented below Lifting: None Bathing: Keep incision dry Bathing Comment: May shower tomorrow Sexual Activity: Wait until after follow-up appointment Exercise/Sports: Wait until after follow-up appointment Driving/Machine Use: No driving until cleared by equal opportunity specialist Weightbearing: Left weightbearing Weightbearing Comment: as tolerated with knee immobilizer and walker assistance Non-emergency contact: Primary Care Provider Call non-emergency contact if: you have any medication questions, your pain is not controlled, your temperature is above 101.5, your wound has increased drainage and your wound pain has increased Follow-up/Referrals: Misael Ramirez MD [Primary Care Provider] - Diet: Regular Addtl Attending Provider Instructions: Post-operative Instructions Dear Patient and Family/Friends, Before you are discharged from the hospital, it is important to know what to expect when you get home after surgery. To that end, we have created this sheet of discharge instructions which covers many commonly asked questions. Make sure you go through this sheet in its entirety with your nurse before you are discharged. Please note that we will go over the specifics of your surgery and recovery when you return for your first post-operative visit. Sincerely, Dr. Kelsey Medication 1. Oxycodone 5 mg: take 1-2 tabs by mouth every 4-6 hours for pain. A prescription will be sent to your pharmacy. 2. Celebrex 200 mg: Continue your daily dose of this medication for relief of pain and inflammation 3. Xarelto 10 mg: Take 1 tab daily for 30 days post operatively for blood clot prevention. 4. Extra Strength Tylenol 500 mg: take 2 tabs by mouth every 6-8 hours for pain control. Please purchase. Pain Expect to be in a fair amount of pain after surgery. Remember, our goal is not to eliminate your pain, but to make it tolerable. It is a good idea to stay ahead of your pain by taking the medications you were prescribed once you get home. Typically, the pain starts improving 3-7 days after surgery. You should start weaning off the narcotic pain medication (oxycodone, hydrocodone, hydromorphone, morphine) as soon as your pain improves. Please call our office if your pain is not adequately controlled. Ice Ice your operative site at least 5 times a day for 15-30 minutes at a time. Make sure you have a thin cloth between the ice or cooling unit and your skin to prevent lassiter bite. This is especially important if you received a nerve block. Continue icing your operative site for the first 5-7 days after surgery, then as needed. Diet/Nausea/Vomiting Start by drinking clear liquids and eating crackers. If you can tolerate this, then you may resume your normal diet. If you feel nauseated or vomit, take Zofran/ondansetron (if prescribed). Please call our office if you have intractable nausea or vomiting, or, if after hours, you may go to the Emergency Room for help. Constipation Constipation is a common side effect of narcotic pain medication. If you have not had a bowel movement within 2 days after surgery, we recommend purchasing an over the counter laxative such as Milk of Magnesia, Dulcolax, or Miralax from a local pharmacy, and taking it as instructed. Call our clinic if any questions. Nerve block The anesthesia team sometimes places a nerve block to help with post-operative pain control. This results in significant numbness and inability to move the extremity. The nerve block usually wears off in 8-12 hours, but sometimes can last up to 24 hours. Please call our office if you are still unable to move your extremity after 24 hours, unless you received a pain pump to take home. Nerve blocks typically wear off quickly, so start taking pain medication as soon as you start feeling soreness near your surgical site. Weight bearing and Range of Motion. Do not bear any weight through your operative extremity immediately after celestino adrian. If you had upper extremity surgery, do not lift anything with that arm. If you are in a knee brace, keep it locked in place until your follow-up. We will discuss your weight bearing, range of motion, and lifting restrictions in detail at your first post-operative appointment. Continuous Passive Motion (CPM) Machine If you were prescribed a CPM machine, it will start after your first post-o perative appointment, at which time we will give you instructions on the range of motion settings and duration of treatment Physical therapy You will be given a prescription for physical therapy or occupational therapy at your first post-operative appointment. Typically, patients start therapy within 1 week of surgery Wound care and showering We will inspect your wound at your first post-operative visit, and may do a dressing change at that time. Most patients will be in a water-proof dressing that is removed 14 days after surgery. It is normal to see some dried blood on the dressing. Do not remove your dressing, paper strips or sutures yourself unless you are given permission. Showering is allowed the day after surgery. Do not scrub or remove any dressings. The wound should not be submerged underwater (i.e. in a bathtub or pool) until 4 weeks after surgery IZABELLA stockings If you were given white stockings, these are to be worn at all times except to shower (on both legs) for the first 2 weeks after surgery. Driving You may not drive while taking narcotic pain medication or while in a cast, splint, sling or brace. You, the patient, need to make the final determination about when you are safe to drive, however, the earliest you may consider driving after surgery is below: Hand/Wrist/Elbow Surgery: 3 days Shoulder Surgery: 2 weeks Hip,/Knee/Ankle Surgery: 4 weeks Fracture repair: 6 weeks Return to Work Your return to work depends on what surgery was done and what type of work you do. Please bring any paperwork your employer needs completed to your first post-operative visit. Also, bring a description of your job duties, as this helps us to understand what risks you may face at work. Travel Avoid long distance travel (greater than 1 hour) in airplanes and cars for the first 6 weeks after surgery. If you must travel, you need to have a Doppler ultrasound done before you travel to rule out a blood clot in your legs. Follow-up You should have a follow-up appointment already scheduled 1-2 days after surgery. If not, please contact our office to make this appointment before you leave the hospital. When to call the office It is normal to have swelling and bruising in the limb that was operated on. This will improve with time. It is also normal to have fevers for the first 2 days after surgery. Reasons you should call your doctor include: Uncontrolled pain; Nausea, vomiting, or constipation that does not improve with medication; Fevers over 101.5, chills, sweats; Drainage or bleeding from the wound; Foul odor; Spreading areas of redness; Any other concerns Pending Studies at Discharge: No Stand-Alone Forms: My [facility], Opioid Pain Management Medications and DC Order Prescriptions: New Xarelto 10 mg tablet 10 mg PO DAILY 30 Days Qty: 30 RF: 0 oxycodone 5 mg tablet 5 mg PO Q6H Qty: 30 RF: 0 Continued celecoxib [Celebrex] 200 mg Capsule 200 mg PO QAM RF: 0 acetaminophen [Tylenol Extra Strength] 500 mg Tablet 500 mg PO QAM RF: 0 allopurinol 300 mg Tablet 300 mg PO QAM RF: 0 biotin 1 mg Tablet 1 mg PO BID RF: 0 omeprazole 20 mg Tablet,Delayed Release (Dr/Ec) 40 mg PO QAM RF: 0 Discharge Orders: Discharge Order (Routine); Ordered 06/29/19 Ordered By: Bossman Jay/Other Patient Handouts: DVT Prevent Admission Data Admit Date/Time: 06/28/19 17:51 Attending Provider: Benjamin Kelsey Admit Provider: Benjamin Kelsey Primary Care Provider: Misael Ramirez Other Providers: [facility],Home Healthcare Other Interventions: Discharge Summary Assessment (RN) Last Done: 06/29/19 13:21 DC Date/Time DO NOT enter until pt leaves facility: 06/29/19 14:39
== END 2019-06-29 14:39 | disposition home health service (06) | DRG 470 ==
LOC: ASU 11:08 → 3E 17:51